=== PATIENT | male | born 1995 | race Caucasian/White ===

== ENCOUNTER 2017-11-28 19:19 | Emergency (ER) | payer BC ==
[2017-11-28 19:39] VITALS: BP 121/63; RESP 16; TEMP 98.4
[2017-11-28] MEDS ORDERED: ACETAMINOPHEN 500 MG TAB ONE (21:44)
[2017-11-28 22:18] VITALS: O2SAT 99
--- NOTE | 2017-11-28 22:52 | EDPHY ---
H & P Time Seen by Provider: 11/28/17 22:10 HPI/ROS: Chief complaint: Right thumb laceration History of present illness: 22-year-old male presents to the emergency department for a laceration to his right thumb. He cut it on a [place] [employer] knife just prior to arrival. Minimal pain. Minimal bleeding. No paresthesias. He is still moving the thumb well. His tetanus is up-to-date. Smoking Status: Never smoked Physical Exam: General: Alert, nontoxic Skin: 1 cm laceration to the pad of the right thumb. No foreign bodies or deep structure involvement on evaluation. Musculoskeletal: Patient is flexing and extending the right thumb in the PIP and in all rausch the MCP joint well. Vascular: Capillary refill brisk in the right thumb. Neurologic: Sensation intact using light touch and two-point discrimination. Constitutional: Initial Vital Signs Temperature (C) 36.9 C 11/28/17 19:36 Heart Rate 56 L 11/28/17 19:36 Respiratory Rate 16 11/28/17 19:36 Blood Pressure 121/63 H 11/28/17 19:36 O2 Sat (%) 98 11/28/17 19:36 O2 Delivery Mode Room Air Allergies/Adverse Reactions: No Known Allergies Allergy (Unverified 11/28/17 19:35) Home Medications: Medication Instructions Recorded NK [No Known Home Meds] 11/28/17 MDM/Departure - MDM Procedures: Procedure: Laceration repair. Verbal consent was obtained from the patient. The 1 cm laceration on the right thumb was anesthetized in the usual fashion. The wound was irrigated, draped and explored to its base with a gloved finger. There were no deep structures involved. No tendon injury was identified. The wound was repaired with 5 0 Prolene, 3 simple interrupted sutures. The wound repair was simple. The procedure was performed by myself. ED Course/Re-evaluation: Patient seen under the supervision of my secondary supervising physician Dr. Cisco Shelton. Patient presents for a right thumb laceration. The thumb is neurovascularly intact. He has good musculoskeletal control. It is repaired and dressed. He is to follow up with a primary care doctor for recheck. Return precautions given. - Depart Disposition: Home, Routine, Self-Care Clinical Impression: Finger laceration Qualifiers: Encounter type: initial encounter Finger: thumb Damage to nail status: without damage Foreign body presence: without foreign body Laterality: right Qualified Code(s): S61.011A - Laceration without foreign body of right thumb without damage to nail, initial encounter Condition: Good Instructions: Care For Your Stitches (ED), Laceration (ED), Acute Wounds (ED) Additional Instructions: Follow-up with a primary care doctor this week for recheck Stitches to be removed in 7 days If symptoms worsen or new symptoms develop return to the emergency room for recheck Referrals: VASYL DANIELSON [Other] - As per Instructions
[2017-11-28 23:01] VITALS: PULSE 62
== END 2017-11-28 23:07 | disposition home or self-care (01) ==
PROC: 0HQFXZZ Repair Right Hand Skin, External Approach (ICD-10-PCS; principal; 2017-11-28)
DX: S61.011A Laceration without foreign body of right thumb without damage to nail, initial encounter (principal); W26.0XXA Contact with knife, initial encounter